=== PATIENT | female | born 1985 | race Hispanic/Latino ===

== ENCOUNTER 2016-10-17 14:12 | Emergency (ER) | payer OTHER ==
[~2016-10-17] VITALS: Ht 160 cm; Wt 64.4 kg
[~2016-10-17 14:12] MED LIST: IBUPROFEN800 MG PO; MOTRIN 800MG T800 MG PO; PERCOCET 325 MG1 TA2 PO; PRENATAL1 TA2 PO
--- NOTE | 2016-10-17 14:47 | ED HEADACHE COMPLAINT ---
History of Present Illness General Chief Complaint: Neuro Symptoms/ Deficit Stated Complaint: BLURRED VISION, PUGH, CONFUSION Source: patient, old records Exam Limitations: no limitations Vital Signs & Intake/Output Vital Signs & Intake/Output Vital Signs Date Time Temp Pulse Resp B/P Pulse O2 O2 Flow FiO2 Ox Delivery Rate 10/17 1700 98.7 88 18 108/55 99 10/17 1500 98 Room Air 10/17 1432 97.5 10/17 1428 97.5 78 16 114/72 98 Room Air Allergies Coded Allergies: No Known Allergies (10/17/16) Reconcile Medications Butalb/Acetaminophen/Caffeine (Fioricet 50-300-40 MG Capsule) 50 MG-300 MG-40 MG CAPSULE 1 TAB PO Q6HR PRN HEADACHE Norethindrone ([place]) 0.35 MG TABLET 1 TAB PO DAILY CONTROL (Reported) Pnv#26/Iron Poly/FA/Dha (Vitafol-One Capsule) 29 MG IRON-1 MG-200 MG CAPSULE 1 CAP PO DAILY SUPPLEMENT (Reported) Triage Note: TO ED FOR C/C BLURRED VISION "WHITE NOISE", REPORTS WAVES TO OBJECTS WHEN TRYING TO FOCUS. SYMPTOMS STARTED APPROX 45 MINS AGO. HX MIGRAINES, REPORTS HEADACHES FOR 5 DAYS, NOT SEVERE TYPICAL MIGRAINES. REPORTS SLIGHT CONFUSION. SPEECH CLEAR AND EQUAL HAND GRASPS, DENIES WEAKNESS TO EITHER SIDE. TEMPORAL HEADACHE RADIATING INTO SINUS AREA. DENIES FEVERS. DENIES N/V. DENIES SIGNIFICANT MEDICAL HX. 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 yes Onset: Abrupt Duration: hour(s): (1), better Timing: recent history Quality/Severity: moderate, achy, constant Severity Numbers: 8 Head Injury Location: temporal No Modifying Factors: none : No Patient currently breastfeeds: Yes HPI: 31-year-old female history of migraines for which she has not been seen by a neurologist, prediabetes presents emergency room after she developed sudden onset approximately 1 hour ago of bilateral temporal headache associated with "blurry spots" in her vision. She states that she did not eat breakfast this morning and the symptoms came on prior to her getting lunch. She had a small pizza and states the symptoms have improved. Her vision symptoms have resolved however the headache persists. The patient was given Motrin in triage had improvement. There's been no recent fall or trauma or no modifying factors or associated symptoms otherwise no nausea no vomiting. She denies any numbness tingling or weakness in her extremities no neck or back pain or fever or chills (ELVER WOODY) Past History Travel History Traveled to [place] past 21 day No Medical History Any Pertinent Medical History? 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 No (ELVER WOODY) Review of Systems Review of Systems Constitutional: Reports: see HPI. All Other Systems: Reviewed and Negative Comments Review of systems: See HPI, All other systems negative. Constitutional, no chills no fever, no malaise HEENT: no sore throat no congestion Cardiovascular: No chest pain , no palpitation Skin, no rashes, no change in skin Respiratory: No dyspnea no cough no sputum GI: No nausea no vomiting, no diarrhea, : No dysuria Muscle skeletal: No joint pain, no back pain, no neck pain, Neurologic: No numbness no confusion, headache Psych: No stress Heme/endocrine: No bruising no bleeding Immunology: No lymphadenopathy (ELVER WOODY) Physical Exam Physical Exam General Appearance: well developed/nourished, alert, awake Cranial Nerves: normal hearing, normal speech, PERRL Comments: Well-developed well-nourished person in no acute distress Head/Face: Atraumatic, no maxillary/frontal sinus tenderness, no facial swelling , no tenderness over the temporal scalp Eyes: PERRL, EOMI, no conjunctival injection. No nystagmus no papilledema Ear:External auditory canal and Tympanic membranes clear, no erythema, no FB. Nose: atraumatic.Normal inspection: No bleeding, no septal hematoma Throat: Moist mucous membranes.Pharynx normal. No stridor/drooling or assymetry. No swelling or edema. Neck: Supple, no lymphadenopathy, FROM, no bruit Back: Nontender, no CVA tenderness. Full range of motion Cardiovascular: Regular rate and rhythms no murmurs rubs Respiratory: Chest nontender.There were no bony deformities, no asymmetry. No respiratory distress. Patient speaking in full complete sentences. Breath sounds clear to auscultation bilaterally: NO W/R/R Abdomen: Soft, nontender nondistended, no appreciable organomegaly. Normal bowel sounds. No rebound/guarding, Extremity: No edema, full range of motion of extremities Neuro: Alert oriented x3, motor sensory normal, cranial nerves II through XII grossly intact. There were no obvious focal neurologic abnormalities. Skin: No appreciable rash on exposed skin, skin is warm and dry. Psych: Mood and affect is normal, memory and judgment is normal. Core Measures Severe Sepsis Present: No Septic Shock Present: No (ELVER WOODY) Progress Differential Diagnosis: cluster PUGH, encephalitis, IC mass/tumor, intracranial Hem., meningitis, musculoskeletal pain, sinusitis, subarach. Hem., tension PUGH, temporal arteritis Plan of Care: Orders Procedure Date/time Status COMPREHENSIVE METABOLIC PANEL 10/17 151 Complete CBC WITHOUT DIFFERENTIAL 10/17 1513 Complete Laboratory Tests 10/17/16 1530: Anion Gap 15, Estimated GFR > 60, BUN/Creatinine Ratio 25.0, Glucose 95, Calcium 10.0, Total Bilirubin 0.4, AST 22, ALT 26, Alkaline Phosphatase 56, Total Protein 7.9, Albumin 5.0, Globulin 2.9, Albumin/Globulin Ratio 1.7, CBC w Diff NO MAN DIFF REQ, RBC 4.34, MCV 94.2, MCH 31.8 H, RDW 12.1, MPV 7.3 L, Gran % 65.1, Lymphocytes % 27.9, Monocytes % 5.3, Eosinophils % 1.2, Basophils % 0.5, Absolute Granulocytes 5.0, Absolute Lymphocytes 2.2, Absolute Monocytes 0.4, Absolute Eosinophils 0.1, Absolute Basophils 0, PUBS MCHC 33.8 pt medicated with toradol 30mg iv, reglan 10mg iv, benadryl 50mg iv iv fluids labs ordered. pt clinically appears well, no focal neurolgic deficits 0 On repeat eval pt feeling improved pending labs Patient feeling improved prescription for FIORICET provided discussed with her at length all of her lab results need for close follow-up with her primary care Thursday she feels comfortable to explain (ELVER WOODY) Departure Departure Time of Disposition: 1646 Disposition: HOME OR SELF CARE Condition: Stable Clinical Impression Primary Impression: Headache Referrals: GABRIELLA IRVING MD (PCP/Family) Additional Instructions: Follow-up with her primary care physician on Thursday, Fioricet for headache. return with any concerns at anytime sooner. 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 I have also reviewed all the pertinent lab results and diagnostic results. I agree with the findings and the plan of care as documented in the PA's/PRODUCTION MACHINE TENDER's documentation. [X] I have reviewed the ED Record and agree with the PA's/PRODUCTION MACHINE TENDER's documentation. [] Additions or exceptions (if any) to the PAs/PRODUCTION MACHINE TENDER's note and plan are summarized below: [] (JEFF RAMÍREZ DO)
[2016-10-17 15:44] LABS: ABSOLUTE BASOPHIL COUNT 0 /CUMM (0.0-0.2); ABSOLUTE EOSINOPHIL COUNT 0.1 /CUMM (0.0-0.7); ABSOLUTE LYMPH COUNT 2.2 /CUMM (1.2-3.4); ABSOLUTE MONOCYTE COUNT 0.4 /CUMM (0.10-0.60); BASOPHIL % 0.5 % (0.0-2.0); EOSINOPHIL % 1.2 % (0-5); GRANULOCYTE % 65.1 % (42.2-75.2); HEMATOCRIT 40.9 % (37-47); MEAN CORPUSCULAR HGB 31.8 PG (27.0-31.0); MEAN CORPUSCULAR HGB CONC 33.8 G/DL (33.0-37.0); MEAN CORPUSCULAR VOLUME 94.2 FL (81.0-99.0); MEAN PLATELET VOLUME 7.3 FL (7.4-10.4); PLATELET COUNT 340 /CUMM (130-400); RBC DISTRIBUTION WIDTH 12.1 % (11.5-14.5); RED BLOOD CELL CT 4.34 /CUMM (4.20-5.40); WHITE BLOOD CELL COUNT 7.8 /CUMM (4.8-10.8)
[2016-10-17] MEDS ORDERED: VITAFOL-ONE CA1 EACH PO (16:39)
[2016-10-17] MEDS ORDERED: CAMILA0.35 M1 PO (16:40)
[2016-10-17] MEDS ORDERED: FIORICET 50-301 EACH PO (16:49)
[2016-10-17 17:00] VITALS: BP 108/55
== END 2016-10-17 17:00 ==
LOC: ERH 14:12
PROVIDERS: Physician Assistant Medical
DX: R51 Headache (principal)
CPT/HCPCS: 96361; 96374; 96375; J1200; J1885; J2765

== ENCOUNTER → 2017-10-08 | Day surgery (SDC) | payer OTHER ==
[~2017-10-08] VITALS: Ht 152.4 cm; Wt 69.9 kg
[~2017-10-08] MED LIST changes: +BUTALBIT-ACETA1 EACH PO; +CAMILA0.35 M1 PO; +FIORICET 50-301 EACH PO; +MULTIVITAMINS1 EAC9 PO; +OLUX-E 0.05% F100 GM TOP; +PERCOCET 5-3251 EACH PO; +VITAFOL-ONE CA1 EACH PO; +VITAMIN B-121000 MC3 PO
--- NOTE | 2017-10-08 11:18 | Operative Report ---
Operative/Inv Procedure Report Surgery Date: 10/08/17 Name of Procedure: D&C Pre-Operative Diagnosis: Missed AB Post-Operative Diagnosis: Missed AB Estimated Blood Loss: 150 Surgeon/Contour Stitcher: Jah NEGRON,Te Peter Anesthesia: tiva Specimens: POC to path Complications: None Condition: Good Operative/Procedure Note Note: The patient was taken to the operating room and anesthesia was induced the patient was prepped and draped in usual sterile fashion a single-tooth tenaculum was placed on the anterior lip of the cervix the cervix was dilated with a Hegar dilator to a number 11 then a [id number] curved suction curette was placed through the endocervical canal with a corkscrew motion suction was applied moderate amount of products of conception was removed. This was followed by a sharp curettage to a good rasp in all 4 quadrants once again the suction curette was passed PRODUCTS of conception were sent to pathology for examination. Patient was given Pitocin the single-tooth tenaculum was removed examination showed the uterus to be firm hemostasis was good patient was then moved to recovery room in good condition Discharge Disposition: PACU
== END ==
LOC: STS 01:45
DX: O02.1 Missed abortion (principal)
CPT/HCPCS: 88305; C9399; J0131; J2250